=== PATIENT | female | born 1990 | race African-American/Black ===

== ENCOUNTER 2024-03-06 16:20 | Emergency (ER) | payer MEDICAID ==
[~2024-03-06] VITALS: Ht 162.6 cm; Wt 54.0 kg
[2024-03-06 16:25] VITALS: BP 120/80; PULSE 101; RESP 18; TEMP 98.2; O2SAT 100
[2024-03-06] MEDS ORDERED: NAP5EC MT (18:51)
[2024-03-06] MEDS ORDERED: NAPR-681 MT (20:04)
== END 2024-03-06 19:05 | disposition home or self-care (01) ==
LOC: ER 16:20
DX: S20.214A Contusion of middle front wall of thorax, initial encounter (principal); S80.02XA Contusion of left knee, initial encounter; Z86.59 Personal history of other mental and behavioral disorders; V49.9XXA Car occupant (driver) (passenger) injured in unspecified traffic accident, initial encounter; Y93.89 Activity, other specified; Y92.89 Other specified places as the place of occurrence of the external cause; Y99.8 Other external cause status
CPT/HCPCS: 71045; 73560; 99284